=== PATIENT | female | born 1990 | race Caucasian/White ===

== ENCOUNTER 2025-05-31 05:01 | Inpatient (IN) | payer BC, SELFPAY ==
[2025-05-31 05:10] VITALS: BP 117/75; BMI 30.8
[2025-05-31] MEDS: LR 1000 IV ×2 (05:30→06:30)
[2025-05-31 05:54] LABS: Hematocrit 40.8 % (37.0-47.0); Hemoglobin 13.6 g/dL (12.0-16.0); Mean Corp Hgb Conc. 33.3 g/dL (33.0-37.0); Mean Corpuscular Volume 93.4 fL (81.0-99.0); Platelet Count 170 10^3/uL (130-400); Red Cell Dist. Width 13.2 % (11.5-14.5)
[2025-05-31] MEDS: SUBLIMAZE 100 MCG EPIDURAL (06:12)
[2025-05-31] MEDS: FENTANYL/BUPIVACAINE 100 EPIDURAL ×3 (06:13→19:42)
[2025-05-31] MEDS: VANCOCIN 530 MG IV ×2 (06:35→16:15)
[2025-05-31] MEDS: MOTRIN 600 MG PO (23:55)
[2025-06-01] MEDS: TYLENOL 650 MG PO ×5 (02:02→20:09)
[2025-06-01 04:54] LABS: Hematocrit 34.6 % (37.0-47.0); Hemoglobin 11.8 g/dL (12.0-16.0)
[2025-06-01] MEDS: MOTRIN 600 MG PO ×3 (06:05→18:03)
[2025-06-01] MEDS: PRENATAL PLUS 1 TABLET PO (08:03)
[2025-06-01] MEDS: COLACE 100 MG PO ×2 (08:03→20:08)
[2025-06-01 13:59] LABS: Syphilis/T. pallidum Ab Reflex Negative (Negative)
[2025-06-02] MEDS: TYLENOL 650 MG PO ×3 (00:09→08:10)
[2025-06-02] MEDS: MOTRIN 600 MG PO ×2 (00:10→06:12)
[2025-06-02] MEDS: PRENATAL PLUS 1 TABLET PO (08:10)
[2025-06-02] MEDS: COLACE 100 MG PO (08:11)
== END 2025-06-02 10:55 | disposition home or self-care (01) | DRG 807 ==
LOC: LDRP 05:01
PROVIDERS: Student in an Organized Health Care Education/Training Program; ADMITTING PHYSICIAN Obstetrics & Gynecology
PROC: 10E0XZZ Delivery of Products of Conception, External Approach (ICD-10-PCS; 2025-05-31)
PROC: 0UQMXZZ Repair Vulva, External Approach (ICD-10-PCS; 2025-05-31)
DX: O34.211 Maternal care for low transverse scar from previous cesarean delivery (principal); Z37.0 Single live birth; O48.0 Post-term pregnancy; Z3A.41 41 weeks gestation of pregnancy; O99.824 Streptococcus B carrier state complicating childbirth; O69.81X0 Labor and delivery complicated by cord around neck, without compression, not applicable or unspecified; O70.0 First degree perineal laceration during delivery; N85.8 Other specified noninflammatory disorders of uterus
CPT/HCPCS: 85014; 85018; 85027; 86780; 86850; 86900; 86901